=== PATIENT | male | born 1990 | race African-American/Black ===

== ENCOUNTER 2023-08-28 23:16 | Emergency (ER) | payer OTHER ==
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
[2023-08-28 23:43] VITALS: BP 188/131; O2SAT 96
== END 2023-08-28 23:30 | disposition home or self-care (01) ==
LOC: ED 23:16
DX: R51.9 Headache, unspecified (principal)
CPT/HCPCS: 99281; 99283

== ENCOUNTER 2023-09-09 14:41 | Emergency (ER) | payer SELFPAY ==
[2023-09-09 14:53] VITALS: BP 149/89; O2SAT 100
--- NOTE | 2023-09-09 15:12 | ED Physician Documentation ---
History of Present Illness - Stated complaint Stated Complaint: CONGESTION,SORE THROAT,BODY ACHE - Chief complaint Chief Complaint: General - History obtained from History obtained from: Patient - Additonal information Additional information: He has been sick since the first or second of this month with body aches, cough and sore throat. He tested positive for COVID on the second of this month. Mo stly he would like something for the congestion aches and a work note. PD PAST MEDICAL HISTORY - Past Medical History Past Medical History: No - Past Surgical History Past Surgical History: No - Present Medications Home Medications: Ambulatory Orders Medication Instructions Recorded Confirmed Guaifenesin/Pseudoephedrne HCl 1 each PO BID PRN #20 tab 09/09/23 [Mucinex D ER 600-60 mg Tablet] Ibuprofen [Motrin] 800 mg PO Q8H PRN #20 tablet 09/09/23 - Allergies Allergies/Adverse Reactions: Allergies Allergy/AdvReac Type Severity Reaction Status Date / Time No Known Drug Allergies Allergy Verified 08/28/23 23:26 - Social History Does the pt smoke?: Yes Smoking Status: Current every day smoker PD ED PE NORMAL - Vitals Vital signs reviewed: Yes - General General: Alert and oriented X 3, No acute distress - HEENT HEENT: Pharynx benign - Neck Neck: Supple, no meningeal sign, No bony TTP - Cardiac Cardiac: RRR, No murmur - Respiratory Respiratory: No respiratory distress, Clear bilaterally - Abdomen Abdomen: Non tender - Derm Derm: No rash - Neuro Neuro: Alert and oriented X 3, Normal speech Results - Vitals Vitals: Vital Signs - 24 hr 09/09/23 14:45 Temperature 36.8 C Heart Rate 94 Respiratory 18 Rate Blood Pressure 149/89 H O2 Saturation 100 Oxygen O2 Source Room air PD Medical Decision Making - ED course ED course: Paxlovid considered but he is already on day 5 or so and he is relatively healthy other than being a smoker. Departure - Departure Disposition: 01 Home, Self Care Clinical Impression: COVID-19 Condition: Good Record reviewed to determine appropriate education?: Yes Instructions: ED Viral Syndrome Prescriptions: Ibuprofen [Motrin] 800 mg PO Q8H PRN #20 tablet PRN Reason: PAIN &/OR FEVER Guaifenesin/Pseudoephedrne HCl [Mucinex D ER 600-60 mg Tablet] 1 each PO BID PRN #20 tab PRN Reason: congestion Forms: PCP List, Activity restrictions
== END 2023-09-09 15:17 | disposition home or self-care (01) ==
LOC: ED 14:41
DX: U07.1 COVID-19 (principal); F17.200 Nicotine dependence, unspecified, uncomplicated
CPT/HCPCS: 99282; 99283